=== PATIENT | female | born 1950 | race American Indian/Alaskan Native ===

== ENCOUNTER 2017-02-27 22:10 | Emergency (ER) | payer OTHER ==
[2017-02-27 22:24] VITALS: BP 127/67
[2017-02-27] MEDS ORDERED: Aspirin 81 MG Tab.Chew PO ONE (22:29)
[2017-02-28 00:29] LABS: CHLORIDE,CL 108 mmol/L (101-111); SODIUM,NA 140 mmol/L (135-145)
--- NOTE | 2017-02-28 01:26 | EDM.PDOC ---
ED HPI GENERAL MEDICAL PROBLEM - General Chief Complaint: Chest Pain Stated Complaint: CHEST PAIN Time Seen by Provider: 02/28/17 00:04 Source of Information: Reports: Patient History Limitations: Reports: No Limitations - History of Present Illness INITIAL COMMENTS - FREE TEXT/NARRATIVE: episode right chest pain below axilla after walking up flight of stairs from doing laundry, slightly more winded today. Pain started after sitting down to watch TV, lasted only few minutes Onset: Today Right Upper Chest Pain Score (Numeric/FACES): 4 - Related Data Allergies Allergy/AdvReac Type Severity Reaction Status Date / Time No Known Allergies Allergy Verified 02/27/17 22:33 Home Meds: Home Meds . 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 Musculoskeletal History: Reports: None Neurological History: Reports: None Psychiatric History: Reports: None Endocrine/Metabolic History: Reports: None Hematologic History: Reports: None Immunologic History: Reports: None Oncologic (Cancer) History: Reports: None Dermatologic History: Reports: None Social & Family History - Tobacco Use Smoking Status *Q: Current Every Day Smoker Years of Tobacco use: 20 Packs/Tins Daily: 3 - Caffeine Use Caffeine Use: Reports: Coffee, Soda, Tea - Recreational Drug Use Recreational Drug Use: No ED ROS GENERAL - Review of Systems Review Of Systems: See Below Constitutional: Reports: No Symptoms HEENT: Reports: No Symptoms Respiratory: Reports: Shortness of Breath (today seemed more than usual) Cardiovascular: Reports: Chest Pain ( right side axillary line), Dyspnea on Exertion. Denies: Blood Pressure Problem, Lightheadedness, Orthopnea, Palpitations GI/Abdominal: Reports: No Symptoms Skin: Reports: No Symptoms Neurological: Reports: No Symptoms ED EXAM, GENERAL - Physical Exam Exam: See Below Exam Limited By: No Limitations General Appearance: Alert, No Apparent Distress Eye Exam: Bilateral Eye: EOMI, PERRL Ears: Normal External Exam, Normal TMs Nose: Normal Inspection Throat/Mouth: Normal Inspection Head: Atraumatic, Normocephalic Neck: Normal Inspection, Full Range of Motion. No: Carotid Bruit, Lymphadenopathy (L), Lymphadenopathy (R) Respiratory/Chest: No Respiratory Distress, Lungs Clear, Normal Breath Sounds, Other (mild point tenderness right mid chest axillary line. Slight increase with movement, change of position). No: Crackles, Rales, Rhonchi, Wheezing Cardiovascular: Normal Peripheral Pulses, Regular Rate, Rhythm, No Edema GI/Abdominal: Normal Bowel Sounds, Soft, Non-Tender Back Exam: Normal Inspection Extremities: Normal Inspection, Normal Range of Motion. No: Pedal Edema Neurological: Alert, Oriented Psychiatric: Normal Affect, Normal Mood Skin Exam: Warm, Dry, Intact, Normal Color. No: Diaphoretic, Increased Warmth Course - Vital Signs Last Recorded V/S: Last Vital Signs Temp 97 F 02/27/17 22:23 Pulse 68 02/27/17 22:23 Resp 20 02/27/17 22:23 BP 127/67 02/27/17 22:23 Pulse Ox 98 02/27/17 22:23 - Orders/Labs/Meds Labs: Laboratory Tests 02/28/17 02/28/17 Range/Units 00:00 00:00 WBC 8.2 (5.0-10.0) 10^3/uL RBC 3.87 L (4.2-5.4) 10^6/uL Hgb 12.0 (12.0-16.0) g/dL Hct 36.6 L (37.0-47.0) % MCV 94.6 (80-100) fL MCH 31.0 (27.0-34.0) pg MCHC 32.8 L (33.0-35.0) g/dL Plt Count 187 (150-450) 10^3/uL Neut % (Auto) 52.0 (42.2-75.2) % Lymph % (Auto) 25.5 (20.5-50.1) % [place] % (Auto) 11.1 H (2-8) % Eos % (Auto) 10.9 H (1.0-3.0) % Baso % (Auto) 0.6 (0.0-1.0) % Sodium 140 (135-145) mmol/L Potassium 3.8 (3.6-5.0) mmol/L Chloride 108 (101-111) mmol/L Carbon Dioxide 23.0 (21.0-31.0) mmol/L Anion Gap 12.8 BUN 19 H (7-18) mg/dL Creatinine 1.2 (0.6-1.3) mg/dL Est Cr Clr Drug Dosing 37.12 mL/min Estimated GFR (MDRD) 45 BUN/Creatinine Ratio 15.83 Glucose 117 H (74-105) mg/dL Calcium 8.8 (8.4-10.2) mg/dl Total Bilirubin 0.4 (0.2-1.0) mg/dL AST 34 (10-42) IU/L ALT 53 (10-60) IU/L Alkaline Phosphatase 102 (42-121) IU/L Troponin I < 0.02 (0.00-0.02) ng/ml Total Protein 7.4 (6.7-8.2) g/dl Albumin 3.6 (3.2-5.5) g/dl Globulin 3.8 Albumin/Globulin Ratio 0.95 Meds: Medications Discontinued Medications Generic Name Dose Route Start Last Admin Trade Name Freq PRN Reason Stop Dose Admin Aspirin 324 mg 02/27/17 22:29 02/27/17 22:34 Aspirin PO 02/27/17 22:30 324 mg ONETIME ONE Administration - Radiology Interpretation Free Text/Narrative:: CXR negative Departure - Departure Time of Disposition: 01:25 Disposition: Home, Self-Care 01 Condition: Good Clinical Impression: Non-cardiac chest pain Forms: ED Department Discharge Additional Instructions: Follow up with primary care as needed
--- NOTE | 2017-03-06 01:37 | EKG ---
02/27/2017 - FREDDY JACKSON - This 12-lead EKG shows a normal sinus rhythm with a ventricular rate of 63. Normal axis and intervals. No acute ST-segment or T-wave changes. [facility] /[id number]
== END 2017-02-28 01:59 | disposition home or self-care (01) ==
LOC: DL.ED 22:10
DX: R07.89 Other chest pain (principal); F17.210 Nicotine dependence, cigarettes, uncomplicated
CPT/HCPCS: 36415; 71010; 80053; 84484; 85025; 99285; A9270

== ENCOUNTER 2018-10-17 18:55 | Emergency (ER) | payer OTHER ==
[2018-10-17 19:03] VITALS: BP 147/85
[2018-10-17 20:06] LABS: ANION GAP 13.1; CHLORIDE,CL 106 mmol/L (101-111); SODIUM,NA 138 mmol/L (135-145)
--- NOTE | 2018-10-17 20:25 | EDM.PDOC ---
ED HPI GENERAL MEDICAL PROBLEM - General Chief Complaint: Lower Extremity Injury/Pain Stated Complaint: BLOOD CLOT POSSIBLE Time Seen by Provider: 10/17/18 19:17 Source of Information: Reports: Patient, Family, RN, RN Notes Reviewed History Limitations: Reports: No Limitations - History of Present Illness INITIAL COMMENTS - FREE TEXT/NARRATIVE: Pt to ER with c/o aching pain, erythema to the right lower leg. She states she has arthritis in the lower legs and thought initially that this was her arthritis. Patient denies any DVT or PE in the past. Denies taking any blood thinners. Admits to health hx of COPD. Denies SOB, chest pain. Patient states she works at the [employer] and is on her feet a lot. Onset: Gradual Duration: Constant Location: Reports: Lower Extremity, Right Quality: Reports: Ache, Throbbing Severity: Mild Improves with: Reports: None Worsens with: Reports: None Associated Symptoms: Reports: No Other Symptoms - Related Data Allergies Allergy/AdvReac Type Severity Reaction Status Date / Time No Known Allergies Allergy Verified 10/17/18 19:03 Home Meds: Home Meds . 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 Musculoskeletal History: Reports: None Neurological History: Reports: None Psychiatric History: Reports: None Endocrine/Metabolic History: Reports: None Hematologic History: Reports: None Immunologic History: Reports: None Oncologic (Cancer) History: Reports: None Dermatologic History: Reports: None - Infectious Disease History Infectious Disease History: Reports: Chicken Pox Social & Family History - Tobacco Use Smoking Status *Q: Current Every Day Smoker Years of Tobacco use: 54 Packs/Tins Daily: 0.2 Second Hand Smoke Exposure: Yes - Caffeine Use Caffeine Use: Reports: Coffee, Soda, Tea - Recreational Drug Use Recreational Drug Use: No Review of Systems - Review of Systems Review Of Systems: ROS reveals no pertinent complaints other than HPI. ED EXAM, GENERAL - Physical Exam Exam: See Below Exam Limited By: No Limitations General Appearance: Alert, WD/WN, No Apparent Distress Eye Exam: Bilateral Eye: EOMI, Normal Inspection Ears: Normal External Exam, Hearing Grossly Normal Nose: Normal Inspection Throat/Mouth: Normal Inspection, Normal Lips, Normal Voice, No Airway Compromise Head: Atraumatic, Normocephalic Neck: Normal Inspection, Supple, Non-Tender, Full Range of Motion Respiratory/Chest: No Respiratory Distress, Normal Breath Sounds, No Accessory Muscle Use, Chest Non-Tender, Crackles (bases bilaterally) Cardiovascular: Normal Peripheral Pulses, Regular Rate, Rhythm, No Edema, No Gallop, No JVD, No Murmur, No Rub GI/Abdominal: Normal Bowel Sounds, Soft, Non-Tender, No Organomegaly, No Distention, No Abnormal Bruit, No Mass, Pelvis Stable (Female) Exam: Deferred Rectal (Female) Exam: Deferred Back Exam: Normal Inspection, Full Range of Motion Extremities: Normal Range of Motion, Normal Capillary Refill, José's Sign ( positive right leg), Leg Pain (right lower leg), Increased Warmth (right lower extremity), Redness (right lower extremity, calf) Neurological: Alert, Oriented, CN II-XII Intact, Normal Cognition, Normal Gait, Normal Reflexes, No Motor/Sensory Deficits Psychiatric: Normal Affect, Normal Mood Skin Exam: Warm, Dry, Intact, Normal Color, No Rash Lymphatic: No Adenopathy Course - Vital Signs Last Recorded V/S: Last Vital Signs Temp 98.9 F 10/17/18 18:58 Pulse 81 10/17/18 18:58 Resp 18 10/17/18 18:58 BP 147/85 H 10/17/18 18:58 Pulse Ox 96 10/17/18 18:58 - Orders/Labs/Meds Orders: Active Orders 24 hr Category Date Time Status Venous Doppler Lwr Ext Rt [US] Urgent Exams 10/17/18 20:10 Taken Labs: Laboratory Tests 10/17/18 10/17/18 10/17/18 Range/Units 19:40 19:40 19:40 WBC 6.7 (5.0-10.0) 10^3/uL RBC 3.93 L (4.2-5.4) 10^6/uL Hgb 12.2 (12.0-16.0) g/dL Hct 37.0 (37.0-47.0) % MCV 94.1 (80-100) fL MCH 31.0 (27.0-34.0) pg MCHC 33.0 (33.0-35.0) g/dL Plt Count 218 (150-450) 10^3/uL Neut % (Auto) 58.6 (42.2-75.2) % Lymph % (Auto) 25.4 (20.5-50.1) % [place] % (Auto) 9.9 H (2-8) % Eos % (Auto) 5.6 H (1.0-3.0) % Baso % (Auto) 0.5 (0.0-1.0) % PT (9.0-12.0) SEC INR (0.9-1.2) D-Dimer, Quantitative 3120 H (0-400) ng/mL Sodium 138 (135-145) mmol/L Potassium 3.1 L (3.6-5.0) mmol/L Chloride 106 (101-111) mmol/L Carbon Dioxide 22.0 (21.0-31.0) mmol/L Anion Gap 13.1 BUN 14 (7-18) mg/dL Creatinine 0.8 (0.6-1.3) mg/dL Est Cr Clr Drug Dosing 54.13 mL/min Estimated GFR (MDRD) > 60 BUN/Creatinine Ratio 17.50 Glucose 107 H (74-105) mg/dL Calcium 8.7 (8.4-10.2) mg/dl Total Bilirubin 0.5 (0.2-1.0) mg/dL AST 29 (10-42) IU/L ALT 22 (10-60) IU/L Alkaline Phosphatase 91 (42-121) IU/L Total Protein 7.6 (6.7-8.2) g/dl Albumin 3.4 (3.2-5.5) g/dl Globulin 4.2 Albumin/Globulin Ratio 0.81 10/17/18 Range/Units 19:40 WBC (5.0-10.0) 10^3/uL RBC (4.2-5.4) 10^6/uL Hgb (12.0-16.0) g/dL Hct (37.0-47.0) % MCV (80-100) fL MCH (27.0-34.0) pg MCHC (33.0-35.0) g/dL Plt Count (150-450) 10^3/uL Neut % (Auto) (42.2-75.2) % Lymph % (Auto) (20.5-50.1) % [place] % (Auto) (2-8) % Eos % (Auto) (1.0-3.0) % Baso % (Auto) (0.0-1.0) % PT 9.1 (9.0-12.0) SEC INR 0.9 (0.9-1.2) D-Dimer, Quantitative (0-400) ng/mL Sodium (135-145) mmol/L Potassium (3.6-5.0) mmol/L Chloride (101-111) mmol/L Carbon Dioxide (21.0-31.0) mmol/L Anion Gap BUN (7-18) mg/dL Creatinine (0.6-1.3) mg/dL Est Cr Clr Drug Dosing mL/min Estimated GFR (MDRD) BUN/Creatinine Ratio Glucose (74-105) mg/dL Calcium (8.4-10.2) mg/dl Total Bilirubin (0.2-1.0) mg/dL AST (10-42) IU/L ALT (10-60) IU/L Alkaline Phosphatase (42-121) IU/L Total Protein (6.7-8.2) g/dl Albumin (3.2-5.5) g/dl Globulin Albumin/Globulin Ratio Meds: Medications Discontinued Medications Generic Name Dose Route Start Last Admin Trade Name Freq PRN Reason Stop Dose Admin Potassium Chloride 40 meq 10/17/18 20:30 10/17/18 20:59 Klor-Con 10 PO 10/17/18 20:31 40 meq ONETIME ONE Administration Rivaroxaban 15 mg 10/17/18 21:03 10/17/18 21:43 Xarelto PO 10/17/18 21:04 15 mg ONETIME ONE Administration - Radiology Interpretation Free Text/Narrative:: Venous doppler right lower extremity: FINDINGS: Right deep veins: Thrombus is seen throughout the popliteal vein, occlusive in some areas. Common femoral and superficial femoral veins are patent. Right superficial veins: Unremarkable. Saphenofemoral junction is patent without thrombus. Soft tissues: Unremarkable. IMPRESSION: Study positive for DVT. Thank you for allowing us to participate in the care of your patient. Dictated and Authenticated by: Dameon Jones MD See rad report - Re-Assessments/Exams Free Text/Narrative Re-Assessment/Exam: 10/17/18 22:31 Patient informed of all diagnostics, current studies on treating DVT. Patient is instructed to be diligent with her Xarelto medication timing. She is also instructed to return to the ER with any further pain, SOB, or chest pain. Patient and family state understanding and agree with the treatment plan. Patient instructed to wear compression socks while awake at all times. Departure - Departure Time of Disposition: 21:50 Disposition: Home, Self-Care 01 Condition: Fair Clinical Impression: Deep vein thrombosis Qualifiers: DVT location: lower extremity Affected thrombotic vein of extremity: popliteal Chronicity: acute Laterality: right Qualified Code(s): I82.431 - Acute embolism and thrombosis of right popliteal vein - Discharge Information *PRESCRIPTION DRUG MONITORING PROGRAM REVIEWED*: No *COPY OF PRESCRIPTION DRUG MONITORING REPORT IN PATIENT LOU: No Instructions: How to Use Compression Stockings, Deep Vein Thrombosis Forms: ED Department Discharge Additional Instructions: RX: Xarelto, Potassium Chloride Return to the ER if you have any increased pain, or if you develop Shortness of Breath or Chest pain Follow up with your primary care facility next week Buy compression stockings at [facility] and wear them daily while up and on your feet - My Orders Last 24 Hours: My Active Orders 10/17/18 20:10 Venous Doppler Lwr Ext Rt [US] Urgent - Assessment/Plan Last 24 Hours: My Active Orders 10/17/18 20:10 Venous Doppler Lwr Ext Rt [US] Urgent
[2018-10-17] MEDS: Potassium Chloride 10 MEQ Tab.ER PO ONE (20:59)
[2018-10-17] MEDS: Rivaroxaban 10 MG Tab PO ONE (21:43)
== END 2018-10-17 20:50 | disposition home or self-care (01) ==
LOC: DL.ED 18:55
DX: I82.431 Acute embolism and thrombosis of right popliteal vein (principal); F17.210 Nicotine dependence, cigarettes, uncomplicated
CPT/HCPCS: 36415; 80053; 85025; 85379; 85610; 93971; 99284; A9270

== ENCOUNTER 2020-10-02 12:04 | Emergency (ER) | payer OTHER ==
[2020-10-02 12:21] VITALS: BP 144/67; PULSE 64
--- NOTE | 2020-10-02 12:45 | EDM.PDOC ---
ED HPI GENERAL MEDICAL PROBLEM - General Chief Complaint: Lower Extremity Injury/Pain Stated Complaint: FELL DOWN STAIRS Time Seen by Provider: 10/02/20 12:25 Source of Information: Reports: Patient, RN, RN Notes Reviewed History Limitations: Reports: No Limitations - History of Present Illness INITIAL COMMENTS - FREE TEXT/NARRATIVE: Patient presents to the ED via personal vehicle with complaints of right knee pain following a fall down three stairs. The patient reports this injury occurred at approximately 0800 today. She denies LOC during the event and did not hit her head; she is not on blood thinners. She states she has trialed Tylenol 650mg x1 for relief of pain but was worried about fracture since her pain was not completely alleviated. She denies injury to any other area of her body. She denies fever, shaking chills, vision changes, chest pain, palpitations, or shortness of breath prior to fall; she states she "tripped." She denies loss of sensory function to the affected extremity, but does verbalize difficulty with extension of the knee. - Related Data Allergies Allergy/AdvReac Type Severity Reaction Status Date / Time No Known Allergies Allergy Verified 10/02/20 12:21 Home Meds: Home Meds . 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 Musculoskeletal History: Reports: Other (See Below) Other Musculoskeletal History: right wrist fracture Neurological History: Reports: None Psychiatric History: Reports: None Endocrine/Metabolic History: Reports: None Hematologic History: Reports: None Immunologic History: Reports: None Oncologic (Cancer) History: Reports: None Dermatologic History: Reports: None - Infectious Disease History Infectious Disease History: Reports: Chicken Pox - Past Surgical History Head Surgeries/Procedures: Reports: None Social & Family History - Family History Family Medical History: No Pertinent Family History - Tobacco Use Tobacco Use Status *Q: Current Every Day Tobacco User Years of Tobacco use: 52 Packs/Tins Daily: 0.3 - Caffeine Use Caffeine Use: Reports: Coffee - Recreational Drug Use Recreational Drug Use: No Review of Systems - Review of Systems Review Of Systems: Comprehensive ROS is negative, except as noted in HPI. ED EXAM, GENERAL - Physical Exam Exam: See Below Exam Limited By: No Limitations General Appearance: Alert, No Apparent Distress Eye Exam: Bilateral Eye: EOMI, Normal Inspection, PERRL (4mm) Throat/Mouth: Normal Inspection, Normal Voice, No Airway Compromise Head: Atraumatic, Normocephalic Neck: Normal Inspection, Supple, Non-Tender, Full Range of Motion Respiratory/Chest: No Respiratory Distress, Lungs Clear, Normal Breath Sounds, No Accessory Muscle Use, Chest Non-Tender Cardiovascular: Normal Peripheral Pulses, Regular Rate, Rhythm, No Edema, No Gallop, No JVD, No Murmur, No Rub Peripheral Pulses: 2+: Radial (L), Radial (R), Posterior Tibial (R), Dorsalis Pedis (R) Extremities: Normal Capillary Refill, Joint Swelling (To right knee), Leg Pain (To anterior aspect of right knee), Limited Range of Motion (To right knee), Increased Warmth (To anterior aspect of right knee). No: José's Sign, Mottled, Pallor, Redness Neurological: Alert, Oriented, CN II-XII Intact, Normal Cognition, No Motor/Sensory Deficits, Abnormal Gait (Limping gait) Psychiatric: Normal Affect, Normal Mood Skin Exam: Warm, Dry, Ecchymosis (To anterior aspect of right knee), Increased Warmth (To anterior aspect of right knee), Wound/Incision (Superficial scattered abrasions to anterior aspect of right knee) Course - Vital Signs Last Recorded V/S: Last Vital Signs Temp 97.7 F 10/02/20 12:17 Pulse 64 10/02/20 12:17 Resp 16 10/02/20 12:17 BP 144/67 H 10/02/20 12:17 Pulse Ox 100 10/02/20 12:17 - Re-Assessments/Exams Free Text/Narrative Re-Assessment/Exam: 10/02/20 Xray of right knee suspicious for lineal nondisplaced patellar fracture; bipartite patella fragment noted. Patient placed in a knee immobilizer. Given patient's difficulty with extensor motion, case discussed with Dr. Farah from [facility] in [place]. Dr. Farah to see patient on 10/05/20 for further evaluation. Patient instructed to utilize walker for ambulation with toe touch weight bearing, as tolerated. Patient verbalized understanding and agreement with the plan of care. Departure - Departure Time of Disposition: 12:59 Disposition: Home, Self-Care 01 Condition: Good Clinical Impression: Bipartite patella Nondisplaced fracture of right patella Qualifiers: Encounter type: initial encounter Fracture type: closed Fracture morphology: unspecified fracture morphology Qualified Code(s): S82.001A - Unspecified fracture of right patella, initial encounter for closed fracture - Discharge Information *PRESCRIPTION DRUG MONITORING PROGRAM REVIEWED*: Not Applicable *COPY OF PRESCRIPTION DRUG MONITORING REPORT IN PATIENT LOU: Not Applicable Instructions: How to Use a Knee Immobilizer, [id number], Patellar Fracture, Adult Forms: ED Department Discharge Additional Instructions: 1.) Follow up with Dr. Farah, orthopedic doctor, at [facility] in [place] on Monday10/05/20. 2.) Keep your immobilizer on at most times; may take it off to shower/bathe. 3.) You may take acetaminophen (Tylenol) 650mg every six hours, as pain persists. You may take ibuprofen (Advil/Motrin) 400mg every six hours, as pain persists. You may stagger these medications so you are taking a dose every three hours. 4.) Apply ice to the front of your knee, as pain and swelling persist, for 20 minutes every hour. Sepsis Event Note (ED) - Evaluation Sepsis Screening Result: No Definite Risk - Focused Exam Vital Signs: Vital Signs Temp Pulse Resp BP Pulse Ox 10/02/20 12:17 97.7 F 64 16 144/67 H 100
--- NOTE | 2020-10-02 12:53 | CR ---
EXAMINATION: Knee 3V Rt SEX: Female AGE: 70 years CLINICAL HISTORY: 70-year-old female injured in fall (down 3 stairs) Interpretation: Abnormal. 1. Suprapatellar bursal effusion. 2. Prepatellar soft tissue swelling. Suspicious underlying lucent line patella suggesting nondisplaced fracture. Note: Smoothly corticated fragment medial aspect patella (bipartite patella variant) also present. 3. No sign of other fracture, dislocation or radiopaque loose joint body right knee. 4. No foreign bodies.
== END 2020-10-02 13:35 | disposition home or self-care (01) ==
LOC: DL.ED 12:04
DX: S82.001A Unspecified fracture of right patella, initial encounter for closed fracture (principal); Q74.1 Congenital malformation of knee; Z72.0 Tobacco use; W10.9XXA Fall (on) (from) unspecified stairs and steps, initial encounter
CPT/HCPCS: 73562-RT; 99283; 99283-25

== ENCOUNTER 2023-04-11 06:12 | Day surgery (SDC) | payer MEDICARE, OTHER ==
[2023-04-11] MEDS ORDERED: fentaNYL 100 MCG/2 ML SDV IV ONE (06:13)
[2023-04-11] MEDS ORDERED: Midazolam 1 MG/ML 2 ML SDV IV ONE (06:13)
[2023-04-11] MEDS: Dextrose 5%-0.45% NaCl 1,000 ML IV SCH (06:36)
[2023-04-11] MEDS ORDERED: fentaNYL 100 MCG/2 ML SDV ONE (07:04)
[2023-04-11] MEDS ORDERED: Midazolam 1 MG/ML 2 ML SDV ONE (07:04)
[2023-04-11] MEDS: fentaNYL 100 MCG/2 ML SDV IV ONE ×2 (07:12→07:13)
[2023-04-11] MEDS: Midazolam 1 MG/ML 2 ML SDV IV ONE ×5 (07:13→07:24)
[2023-04-11 08:36] VITALS: BP 110/58; PULSE 50
== END 2023-04-11 08:47 | disposition home or self-care (01) ==
LOC: DL.ENDO 06:12
PROVIDERS: ATTEND Internal Medicine Gastroenterology
DX: Z12.11 Encounter for screening for malignant neoplasm of colon (principal); K63.5 Polyp of colon; K64.8 Other hemorrhoids; H91.90 Unspecified hearing loss, unspecified ear; E66.09 Other obesity due to excess calories; M19.90 Unspecified osteoarthritis, unspecified site; M81.0 Age-related osteoporosis without current pathological fracture; Z90.710 Acquired absence of both cervix and uterus; Z68.31 Body mass index [BMI] 31.0-31.9, adult
CPT/HCPCS: J2250; J3010; J7042

== ENCOUNTER 2023-09-10 10:52 | Emergency (ER) | payer OTHER ==
[2023-09-10] MEDS ORDERED: Acetaminophen/HYDROcodone 325-5 MG Tab PO ONE (11:09)
[2023-09-10 11:14] VITALS: BP 150/76; PULSE 59
== END 2023-09-10 11:36 | disposition home or self-care (01) ==
LOC: DL.ED 10:52
DX: S42.292A Other displaced fracture of upper end of left humerus, initial encounter for closed fracture (principal); J44.9 Chronic obstructive pulmonary disease, unspecified; W18.2XXA Fall in (into) shower or empty bathtub, initial encounter
CPT/HCPCS: 73030; 99283; A9270

== ENCOUNTER 2025-06-02 10:33 | Emergency (ER) | payer MEDICARE, OTHER ==
[2025-06-02 11:08] LABS: BASOPHILS PERCENT AUTO 0.7 % (0.0-1.0); EOSINOPHILS PERCENT AUTO 15.1 % (1.0-3.0); LYMPHOCYTES PERCENT AUTO 19.2 % (20.5-50.1); MONOCYTES PERCENT AUTO 10.8 % (2-8); NEUTROPHILS PERCENT AUTO 54.2 % (42.2-75.2); PLATELET COUNT,PLT 174 10^3/uL (150-450); RED BLOOD CELL COUNT 3.66 10^6/uL (4.2-5.4); WHITE BLOOD CELL COUNT,WBC 6.1 10^3/uL (5.0-10.0)
[2025-06-02 11:30] LABS: ALANINE AMINOTRANSFERASE,ALT 41.0 U/L (14-59); ASPARTATE AMNIOTRANSFERASE,AST 29.0 U/L (15-37); BILIRUBIN TOTAL 0.4 mg/dL (0.2-1.0); BLOOD UREA NITROGEN,BUN 21.0 mg/dL (7-18); CARBON DIOXIDE,CO2 25.0 mmol/L (21-32); CHLORIDE,CL 108.0 mmol/L (98-107); CREATININE 1.1 mg/dL (0.55-1.02); EST CRCL DRUG DOSING (CG) 35.43 mL/min; GLUCOSE RANDOM 93.0 mg/dL (70-99); POTASSIUM,K 3.7 mmol/L (3.5-5.1); PROTEIN TOTAL,TP 8.4 g/dL (6.4-8.2); SODIUM,NA 139.0 mmol/L (136-145)
[2025-06-02 11:31] LABS: A/G RATIO 0.58; ESTIMATED GFR 52.0 mL/min (>=60)
[2025-06-02 14:19] VITALS: BP 147/77; PULSE 58
== END 2025-06-02 14:09 | disposition home or self-care (01) ==
LOC: DL.ED 10:33
DX: R07.89 Other chest pain (principal); J44.9 Chronic obstructive pulmonary disease, unspecified; Z90.710 Acquired absence of both cervix and uterus; Z79.899 Other long term (current) drug therapy
CPT/HCPCS: 36415; 71045; 71250; 80053; 83735; 83880; 84484; 85025; 85379; 93005; 93010; 99284; 99285; A9270